=== PATIENT | female | born 2005 ===

== ENCOUNTER 2023-06-13 21:01 | Emergency (ER) | payer OTHER, SELFPAY ==
[2023-06-13 21:14] VITALS: BP 143/97
[2023-06-14 00:37] VITALS: BMI 20.8
--- NOTE | 2023-06-14 02:00 | ED.GENMED ---
History of Present Illness
General
Chief Complaint: Rabies
Source: patient
Exam Limitations: none
Time Seen by Provider: 06/14/23 01:05
Nursing documentation reviewed up to this point in time: agreed with
Travel History
Have you had any contact with someone who has COVID-19?: No
Do you have any symptoms of coronavirus? Fever > 100 degrees, chills, cough, shortness of breath, sore throat, loss of taste or smell, muscle aches, or headache?: No
History of Present Illness
History of Present Illness:
Patient presents to ED after her left index finger was accidentally bitten by a squirrel at work. Patient who is currently working at [employer], was feeding the squirrel when she was bitten. Squirrel has been quarantined and will be tested
for rabies in the upcoming days. Patient otherwise denies any other injuries. Bleeding has been controlled with Band-Aid. Patient's vaccinations are up-to-date.
Review of Systems
Review of Systems
Allergies reviewed?: Yes
All Other Systems: ROS reviewed and negative except as documented in HPI and ROS
Constitutional: Reports no symptoms
ABD/GI: Reports no symptoms
Musculoskeletal: Reports no symptoms
Skin: Reports other (animal bite)
Neurological: Reports no symptoms
Phy Exam
Physical Exam
Physical Exam:
Physical Exam
General: no apparent distress, not acutely ill. afebrile
Head: nc/at. eomi
Neck: supple. no meningeal signs.
Neuro: alert and oriented. no focal neurological deficits
Skin: an approx 0.5cm superficial laceration noted over volar surface of left 2nd distal phalanx without active bleeding.
Psychiatric: well kept. interactive and cooperative
Extremities: no edema.
Course
Orders/Labs/Results
Orders:
Orders
06/14/23 01:[address] Non Medication Order As Directed
Physician Order: Please soak affected finger in diluted betadine solution for 15-20 minutes prior to
administration of immunoglobulin.
06/14/23 02:09
Rabies Immune Globulin/Pf [HyperRAB] 1,134 unit IM NOW STA
06/14/23 02:15
Rabies Vaccine (Pcec)/Pf [Rabavert Rabies Vacc W-Diluent] 2.5 unit IM .ONCE ONE
Vital Signs
Initial and Last Documented VS:
Initial Vital Signs
Temp Pulse Resp BP Pulse Ox
98.9 F 111 19 143/97 99
06/13/23 21:14 06/13/23 21:14 06/13/23 21:14 06/13/23 21:14 06/13/23 21:14
Last Documented Vital Signs
Temp Pulse Resp BP Pulse Ox
98.9 F 111 19 143/97 99
06/13/23 21:14 06/13/23 21:14 06/13/23 21:14 06/13/23 21:14 06/13/23 21:14
MDM/Problems Addressed
MDM/Problems Addressed:
Superficial laceration noted, without active bleeding. No other injuries noted. Area cleansed with Betadine solution and rabies immunoglobulin as well as vaccination provided. Patient is to receive subsequent rabies vaccinations through
outpatient infusion center.
*Critical Care Note
Total Time (30-74mins, 75-104mins- exclusive of procedures): Not Applicable
ED Attending Note
-
Portions of this chart may have been created with voice recognition software.� Occasional wrong word or��sound alike� substitutions may have occurred due to the inherent limitations of voice recognition software.
Discharge Plan
Departure
Patient Disposition: Home (Routine Discharge)
Date of Disposition: 06/14/23
Time of Disposition: 02:00
Patient with high blood pressure during this ER visit?: Yes
Condition: Good
Discharge Problem:
Animal bite
Instructions: Animal Bites (DC)
Referrals:
Albina Aguayo CRNP [Family Provider] -
Stand Alone Forms: Rabies Vaccine Post Exp Dosing
Activity Restrictions/Additional Instructions:
As discussed, please follow-up with referred infusion center for subsequent rabies vaccine administration.
Interventions
Interventions:
*Risk Screen - Suicide Last Done: 06/14/23 00:37
*General Assessment Last Done: 06/14/23 00:37
*Neglect/Abuse Screening Last Done: 06/14/23 00:37
ED- Fall Risk Assessment Last Done: 06/14/23 00:37
*ED COVID-19 Vaccine History Last Done: 06/13/23 21:15
*Nursing Disposition Last Done: 06/14/23 03:27
Discharge Date and Time
Discharge Date/Time: 06/14/23 03:28
Print Language: THAI
[2023-06-14] MEDS: RABAVERT RABIES VACC W-DILUENT 2.5 UNIT IM (03:09)
[2023-06-14] MEDS: HyperRAB 1134 UNIT IM (03:10)
== END 2023-06-14 03:28 | disposition home or self-care (01) ==
LOC: EMR 21:01
PROVIDERS: EMERGENCY PHYSICIAN Emergency Medicine; FAMILY PHYSICIAN Nurse Practitioner Family
DX: S61.251A Open bite of left index finger without damage to nail, initial encounter (principal); W53.21XA Bitten by squirrel, initial encounter; Y99.0 Civilian activity done for income or pay; Z20.3 Contact with and (suspected) exposure to rabies; Z23 Encounter for immunization; Z29.14 Encounter for prophylactic rabies immune globulin; R03.0 Elevated blood-pressure reading, without diagnosis of hypertension
CPT/HCPCS: 99284; 90471; 96372; 90375; 90675

== ENCOUNTER 2023-06-28 14:31 | Outpatient (RCR) | payer OTHER, SELFPAY ==
[2023-06-17] MEDS: RABAVERT RABIES VACC W-DILUENT 2.5 UNIT IM (14:34)
[2023-06-17 15:03] VITALS: BP 132/81
[2023-06-21 08:40] VITALS: BP 117/76
[2023-06-21] MEDS: RABAVERT RABIES VACC W-DILUENT 2.5 UNIT IM (08:49)
[2023-06-28] MEDS: RABAVERT RABIES VACC W-DILUENT 2.5 UNIT IM (15:00)
[2023-06-28 15:09] VITALS: BP 116/67
== END 2023-06-28 23:59 | disposition home or self-care (01) ==
LOC: OID 14:31
PROVIDERS: ATTENDING PHYSICIAN Emergency Medicine; FAMILY PHYSICIAN Nurse Practitioner Family
DX: Z20.3 Contact with and (suspected) exposure to rabies (principal); Z23 Encounter for immunization
CPT/HCPCS: 90471; 90675

== ENCOUNTER → 2023-07-06 13:44 | Outpatient (REF) | payer OTHER, SELFPAY | LOC: RAD 13:44 | PROVIDERS: ATTENDING PHYSICIAN Nurse Practitioner Family | DX: M79.5 Residual foreign body in soft tissue (principal) | CPT/HCPCS: 73140 ==